=== PATIENT | female | born 1975 ===

== ENCOUNTER 2019-03-10 20:59 | Emergency (ER) | payer SELFPAY ==
[2019-03-10 21:24] VITALS: BP 111/74
--- NOTE | 2019-03-10 21:31 | UC ---
UC General HPI - HPI Summary HPI Summary: C/O 3 day h/o fatigue, myalgia, headache, photophobia, nausea, sweats, low grade fever. - History of Current Complaint Chief Complaint: UCGeneralIllness Stated Complaint: FEVER,NAUSEA Hx Obtained From: Patient Hx Last Menstrual Period: 02/24/19 Onset/Duration: Gradual Onset, Lasting Days - 3, Worse Since - onset Onset Severity: Mild Current Severity: Moderate Pain Intensity: 6 Associated Signs & Symptoms: Positive: Fever, Headache, Nausea. Negative: Cough , Diarrhea, Vomiting - Allergy/Home Medications Allergies/Adverse Reactions: Allergies Allergy/AdvReac Type Severity Reaction Status Date / Time No Known Allergies Allergy Verified 03/10/19 21:19 PMH/Surg Hx/FS Hx/Imm Hx Previously Healthy: Yes - Surgical History Surgical History: None - Family History Known Family History: Negative: Cardiac Disease, Hypertension, Diabetes - Social History Occupation: Employed Full-time Lives: Alone - with BF Alcohol Use: Rare Substance Use Type: None Smoking Status (MU): Never Smoked Tobacco Review of Systems All Other Systems Reviewed And Are Negative: Yes Constitutional: Positive: Fever, Fatigue Eyes: Positive: Photophobia Gastrointestinal: Positive: Nausea Musculoskeletal: Positive: Myalgia Neurological: Positive: Headache Physical Exam Triage Information Reviewed: Yes Appearance: No Pain Distress, Well-Nourished, Ill-Appearing - mild Vital Signs: Initial Vital Signs Temp 99 F 03/10/19 21:20 Pulse 58 03/10/19 21:20 Resp 15 03/10/19 21:20 BP 111/74 03/10/19 21:20 Pulse Ox 100 03/10/19 21:20 Vital Signs Reviewed: Yes Eyes: Positive: Conjunctiva Inflamed ENT: Positive: Pharynx normal, Nasal congestion - with mild allergic changes, TMs normal Neck exam: Normal Respiratory Exam: Normal Cardiovascular Exam: Normal Abdominal Exam: Normal Musculoskeletal Exam: Normal Neurological: Positive: Fatigued Psychological Exam: Normal Skin Exam: Normal Course/Dx - Differential Dx - Multi-Symptom Differential Diagnoses: Metabolic Abnormality, Sepsis, Other - viral syndrome lyme titer - Diagnoses Provider Diagnosis: Viral syndrome, Fatigue Discharge - Sign-Out/Discharge Documenting (check all that apply): Patient Departure All imaging exams completed and their final reports reviewed: No Studies - Discharge Plan Condition: Stable Disposition: HOME Patient Education Materials: Fatigue (ED), Viral Syndrome (ED) Referrals: Ramses Muñoz MD [Primary Care Provider] - If Needed (If not better in 10 days) - Billing Disposition and Condition Condition: STABLE Disposition: Home
[2019-03-11 11:38] LABS: ABS Basophils 0.1 10^3/ul (0-0.2); ABS Eosinophils 0.2 10^3/ul (0-0.6); ABS Monocytes 0.4 10^3/ul (0-0.8); ABS Neutrophils 7.7 10^3/ul (1.5-7.7); Eosinophil % 2.1 %; Hematocrit 36 % (35-47); Lymphocyte % 19.1 %; Mean Corpuscular HGB Conc 33 g/dL (31-36); Mean Corpuscular Hemoglobin 29 pg (27-31); Mean Corpuscular Volume 88 fL (80-97); Mean Platelet Volume 9.9 fL (7.4-10.4); Platelet Count 265 10^3/uL (150-450); Red Blood Count 4.09 10^6 /uL (3.70-4.87); Red Cell Distribution Width 13 % (10-15); White Blood Count 10.3 10^3/uL (3.5-10.8)
== END 2019-03-10 21:56 | disposition home or self-care (01) ==
LOC: UCCORT 20:59
DX: B34.9 Viral infection, unspecified (principal); R53.83 Other fatigue
CPT/HCPCS: 36415; 85025; 86618; 99211; G0463